=== PATIENT | female | born 1965 | race Two or more races ===

== ENCOUNTER 2023-01-11 03:29 | Emergency (ER) | payer OTHER ==
[~2023-01-11] VITALS: Ht 162.6 cm; Wt 59.0 kg
[2023-01-11] MEDS ORDERED: PEPCID AC20 MG PO (05:29)
[2023-01-11] MEDS ORDERED: INTESTINEX680 M1 PO (05:29)
== END 2023-01-11 05:48 | disposition home or self-care (01) ==
LOC: ER 03:29
DX: R10.9 Unspecified abdominal pain (principal); R19.7 Diarrhea, unspecified; R11.2 Nausea with vomiting, unspecified; Z88.2 Allergy status to sulfonamides; Z88.1 Allergy status to other antibiotic agents